=== PATIENT | male | born 1995 | race Caucasian/White ===

== ENCOUNTER 2024-02-09 23:37 | Emergency (ER) | payer OTHER, SELFPAY ==
[2024-02-09 23:40] VITALS: BP 157/101; PULSE 56; TEMP 36.4; O2SAT 98; BMI 26.6
[2024-02-09 23:44] VITALS: BP 157/101; PULSE 54; TEMP 36.4; O2SAT 98; BMI 26.6
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
[2024-02-10] MEDS: IBUPROFEN 600 MG TABLET PO (00:21)
[2024-02-10] MEDS: ACETAMINOPHEN 325 MG TABLET 650 MG PO (00:21)
[2024-02-10 01:00] VITALS: BP 150/80
== END 2024-02-10 01:00 | disposition home or self-care (01) ==
PROVIDERS: Emergency Provider Emergency Medicine
DX: S40.011A Contusion of right shoulder, initial encounter (principal); V04.00XA Pedestrian on foot injured in collision with heavy transport vehicle or bus in nontraffic accident, initial encounter
CPT/HCPCS: 72072; 73030; 99283